=== PATIENT | male | born 1945 | race Caucasian/White ===

== ENCOUNTER → 2016-11-03 | Outpatient (CLI) | payer MEDICARE ==
[~2016-11-03] MED LIST: ACET325T14 PO; APIX5TAB PO; CALCIUM PO; CLON1TAB23 PO; DILT180C53 PO; DILT240C2 PO; DRON400T PO; FISH1CAP PO; FLEC100T PO; LOSA50TA6 PO; MELA3TAB37 PO; MIRT15TA4 PO; MOME17SP NAS; MULT-6 PO; NASONEX PO; OMNIPAQUE 350 MG/ML, 150 ML BOTTLE ONE; ROPI0.5T2 PO; ROPI1TAB2 PO; SLOW MAG PO; TEST200V3 SC; TRAZ100T15 PO; [UNRECOGNIZED DRUG - REMARK] IH
== END | disposition home or self-care (01) ==
LOC: CFH 08:38
PROVIDERS: ATTEND Internal Medicine Cardiovascular Disease
DX: R91.1 Solitary pulmonary nodule (principal); I48.0 Paroxysmal atrial fibrillation; I25.10 Atherosclerotic heart disease of native coronary artery without angina pectoris; I10 Essential (primary) hypertension; E78.5 Hyperlipidemia, unspecified; G47.30 Sleep apnea, unspecified
CPT/HCPCS: 75572; 82565; Q9967; 36415; 71020; 80053; 85025; 85610; 85730; 93005

== ENCOUNTER 2016-11-07 06:12 | Observation (INO) | payer MEDICARE ==
[2016-11-03 11:36] VITALS: BP 131/91
[~2016-11-07] VITALS: Ht 175.3 cm; Wt 84.9 kg
[~2016-11-07 06:12] MED LIST changes: -ACET325T14 PO; -OMNIPAQUE 350 MG/ML, 150 ML BOTTLE ONE
[2016-11-07] MEDS ORDERED: SODIUM CHLORIDE 0.9% 1,000 ML IV SCH (06:29)
[2016-11-07] MEDS ORDERED: SODIUM CHLORIDE 0.9% 1,000 ML IV ONE (06:30)
[2016-11-07] MEDS ORDERED: FENTANYL PF 250 MCG/5ML ONE (07:46)
[2016-11-07] MEDS ORDERED: MIDAZOLAM 1 MG/ML, 5ML ONE (07:46)
[2016-11-07] MEDS ORDERED: BUPIVACAINE 0.25% ONE (07:53)
[2016-11-07] MEDS ORDERED: HEPARIN 1,000 UNITS/ML, 10ML ONE ×2 (07:53→09:57)
[2016-11-07] MEDS ORDERED: PROTAMINE SULFATE 10 MG/ML, 5ML ONE (09:57)
[2016-11-07] MEDS ORDERED: ZOLPIDEM 5MG TABLET PO PRN (11:00)
[2016-11-07] MEDS ORDERED: ACETAMINOPHEN 325 MG TABLET PO PRN ×2 (11:00→11:30)
[2016-11-07] MEDS ORDERED: ONDANSETRON 2MG/ML, 2ML IVPush PRN (11:30)
[2016-11-07] MEDS ORDERED: ALBUTEROL SULFATE 2.5 MG/3 ML NPPB PRN (11:30)
[2016-11-07] MEDS ORDERED: MEPERIDINE/PF 25MG/0.5ML IVPush PRN (11:30)
[2016-11-07] MEDS ORDERED: hydrALAzine 20 MG/ML, 1ML IV PRN (11:30)
[2016-11-07] MEDS ORDERED: FENTANYL PF 100 MCG/2ML IV PRN (11:30)
[2016-11-07] MEDS ORDERED: OXYcodone 5 MG/5 ML ORAL.SOL UDC PO PRN (11:30)
[2016-11-07] MEDS ORDERED: HYDROmorphone 1 MG/ML, 1ML IV PRN (11:30)
[2016-11-07] MEDS ORDERED: LABETALOL 5MG/ML, 20ML IV PRN (11:30)
[2016-11-07] MEDS ORDERED: MIDAZOLAM 1 MG/ML, 2ML IV PRN (11:30)
[2016-11-07] MEDS ORDERED: PROMETHAZINE 25 MG/ML, 1ML IV PRN (11:30)
[2016-11-07 12:00] VITALS: BP 121/76
[2016-11-07 13:00] VITALS: BP 121/78
[2016-11-07] MEDS ORDERED: DEXAMETHASONE 4 MG/ML, 1ML ONE (15:24)
[2016-11-07] MEDS ORDERED: SUCCINYLCHOLINE 20 MG/ML, 10ML ONE (15:24)
[2016-11-07] MEDS ORDERED: ONDANSETRON 2MG/ML, 2ML ONE (15:24)
[2016-11-07] MEDS ORDERED: ROCURONIUM 10 MG/ML ONE (15:24)
[2016-11-07] MEDS ORDERED: PHENYLEPHRINE 10 MG/ML ONE (15:24)
[2016-11-07] MEDS ORDERED: PROPOFOL 10 MG/ML, 20ML ONE (15:24)
[2016-11-07] MEDS ORDERED: ROPINIROLE 0.5MG TABLET PO SCH ×2 (16:00→21:00)
[2016-11-07 19:33] VITALS: BP 122/70
[2016-11-07] MEDS: APIXABAN 5 MG TABLET PO SCH (19:56)
[2016-11-07] MEDS: FISH OIL PO SCH (20:02)
[2016-11-07] MEDS: EPA PO SCH (20:02)
[2016-11-07] MEDS: DHA PO SCH (20:02)
[2016-11-07] MEDS ORDERED: TRAZODONE 150MG TABLET PO SCH (21:00)
[2016-11-07] MEDS ORDERED: MIRTAZAPINE 15 MG TABLET PO SCH (21:00)
[2016-11-07] MEDS ORDERED: MELATONIN 3 MG TABLET PO SCH (21:00)
[2016-11-08 02:52] VITALS: BP 123/72
[2016-11-08] MEDS: DHA PO SCH (08:23)
[2016-11-08] MEDS: EPA PO SCH (08:23)
[2016-11-08] MEDS: FISH OIL PO SCH (08:23)
[2016-11-08] MEDS: APIXABAN 5 MG TABLET PO SCH (08:24)
[2016-11-08] MEDS ORDERED: MULTIVITAMIN 1 TABLET PO SCH (09:00)
[2016-11-08] MEDS ORDERED: DILTIAZEM 240 MG CAP.ER.24H PO SCH (09:00)
[2016-11-08] MEDS ORDERED: ACET325T14 PO (10:05)
[2016-11-12] MEDS ORDERED: TESTOSTERONE CYPIONATE 200 MG/ML IM SCH (13:00)
== END 2016-11-08 14:42 | disposition home or self-care (01) ==
LOC: CACL 06:12 → ORIP 10:36 → 5SO 11:59
PROVIDERS: ADMIT Internal Medicine Cardiovascular Disease; ATTEND Internal Medicine Cardiovascular Disease
DX: I48.0 Paroxysmal atrial fibrillation (principal); I48.92 Unspecified atrial flutter
CPT/HCPCS: 85347; 93308; 93312; 93321; 93325; 93613; 93655; 93656; 93662; C1730; C1731; C1732; C1759; C1766; C1893; C1894; G0378; J0330; J1100; J1644; J2250; J2370; J2405; J2704; J2720; J3010; J3490

== ENCOUNTER → 2017-03-13 | Outpatient (CLI) | payer MEDICARE ==
[~2017-03-13] MED LIST changes: +ACET325T14 PO; -MELA3TAB37 PO; +MELA3TAB62 PO
== END | disposition home or self-care (01) ==
LOC: CFH 15:28
PROVIDERS: ATTEND Physician Assistant
DX: R91.8 Other nonspecific abnormal finding of lung field (principal); J84.10 Pulmonary fibrosis, unspecified; J43.2 Centrilobular emphysema; N28.1 Cyst of kidney, acquired; M40.294 Other kyphosis, thoracic region
CPT/HCPCS: 71250

== ENCOUNTER → 2017-07-27 | Outpatient (CLI) | payer MEDICARE | END | disposition home or self-care (01) | LOC: RAD 08:47 | PROVIDERS: ATTEND Internal Medicine | DX: J43.2 Centrilobular emphysema (principal); N20.0 Calculus of kidney; N28.1 Cyst of kidney, acquired | CPT/HCPCS: 71250 ==

== ENCOUNTER → 2018-03-07 | Outpatient (CLI) | payer MEDICARE ==
[~2018-03-07] MED LIST changes: -LOSA50TA6 PO; +LOSA50TA7 PO; +TRAZ-137 PO; -TRAZ100T15 PO
== END | disposition home or self-care (01) ==
LOC: CFH 08:54
PROVIDERS: ATTEND Internal Medicine
DX: J43.2 Centrilobular emphysema (principal); R91.8 Other nonspecific abnormal finding of lung field
CPT/HCPCS: 71250

== ENCOUNTER 2018-12-12 12:01 | Outpatient (CLI) | payer MEDICARE | END 2018-12-12 23:59 | disposition home or self-care (01) | LOC: CFH 12:01 | PROVIDERS: ATTEND Internal Medicine | DX: R91.8 Other nonspecific abnormal finding of lung field (principal); J98.4 Other disorders of lung; M40.294 Other kyphosis, thoracic region; M51.34 Other intervertebral disc degeneration, thoracic region | CPT/HCPCS: 71250 ==